=== PATIENT | female | born 1995 | race Caucasian/White ===

== ENCOUNTER 2019-12-11 11:07 | Emergency (ER) | payer OTHER ==
[~2019-12-11] VITALS: Ht 149.9 cm; Wt 72.7 kg
[2019-12-11 11:15] VITALS: TEMP 98.6
[2019-12-11 13:00] VITALS: BP 109/75; PULSE 68
== END 2019-12-11 13:19 | disposition home or self-care (01) ==
LOC: COL.ER 11:07
DX: L02.215 Cutaneous abscess of perineum (principal); Z90.49 Acquired absence of other specified parts of digestive tract

== ENCOUNTER 2019-12-11 13:31 | Emergency (ER) | payer OTHER ==
[~2019-12-11] VITALS: Ht 149.9 cm; Wt 72.7 kg
[2019-12-11 13:36] VITALS: TEMP 97
[2019-12-11 15:15] VITALS: BP 113/61; PULSE 72
== END 2019-12-11 15:15 | disposition home or self-care (01) ==
LOC: COL.ER 13:31
DX: R42 Dizziness and giddiness (principal)